=== PATIENT | female | born 1990 | race Caucasian/White ===

== ENCOUNTER → 2018-05-02 | Outpatient (CLI) | payer OTHER ==
[~2018-05-02] MED LIST: ALBU8HFA2 INH; AMOCLA875 PO; AMOX500 PO; BUSP5 PO; CEPH500 PO; CIPR500 PO; CYCL10 PO; DOXY100 PO; HYDACE5 PO; HYDACE5325 PO; IBUP600 PO; IBUP800 PO; MEDR150I; METR500 PO; MULVITMIND PO; MULVITMINE PO; Mirena1 EACH VG; NAPR500 PO; PENVK500 PO; PHENA200 PO; PROM25 PO; Percocet 5-3251 EACH PO; RXCEPH500 PO; RXCYCL10 PO; RXHYDACE PO; SERT50; STOMUL PO; VENL25 PO; Vistaril25 MG PO; Zofran4 MG PO
== END ==
LOC: LAB SHORT 15:04 → LAB SRC 15:04 → LAB SHORT 05-03 10:20
DX: Z51.81 Encounter for therapeutic drug level monitoring (principal); F11.20 Opioid dependence, uncomplicated; F12.10 Cannabis abuse, uncomplicated; Z79.899 Other long term (current) drug therapy
CPT/HCPCS: G0480

== ENCOUNTER → 2018-07-23 | Outpatient (CLI) | payer OTHER | END | disposition home or self-care (01) | LOC: LAB SHORT 12:45 → LAB SRC 12:45 | DX: Z51.81 Encounter for therapeutic drug level monitoring (principal); Z79.899 Other long term (current) drug therapy | CPT/HCPCS: G0480 ==

== ENCOUNTER → 2019-01-14 | Outpatient (CLI) | payer OTHER ==
[2019-01-14 20:23] LABS: Candida species (DNA Probe) Negative (NEGATIVE); G. vaginalis (DNA Probe) Positive (NEGATIVE); T. vaginalis (DNA Probe) Negative (NEGATIVE)
[2019-01-17 02:06] LABS: CHLAMYDIA TRACHOMATIS, NAA Negative (Negative); NEISSERIA GONORRHOEAE, NAA Negative (Negative)
== END | disposition home or self-care (01) ==
LOC: LAB 12:34 → LAB SHORT 12:34
PROVIDERS: Obstetrics & Gynecology
DX: Z01.411 Encounter for gynecological examination (general) (routine) with abnormal findings (principal); Z11.3 Encounter for screening for infections with a predominantly sexual mode of transmission; N76.0 Acute vaginitis
CPT/HCPCS: 87480; 87491; 87510; 87591; 87660; G0123

== ENCOUNTER → 2019-02-18 | Outpatient (CLI) | payer OTHER | END | disposition home or self-care (01) | LOC: LAB SRC 08:30 → LAB SHORT 08:30 | DX: N39.0 Urinary tract infection, site not specified (principal) | CPT/HCPCS: 87077; 87086; 87186 ==

== ENCOUNTER → 2019-11-14 | Outpatient (CLI) | payer OTHER | LOC: LAB SHORT 18:16 → LAB EV 18:16 | DX: N39.0 Urinary tract infection, site not specified (principal) | CPT/HCPCS: 87077; 87086; 87186 ==

== ENCOUNTER → 2020-02-04 | Outpatient (CLI) | payer OTHER ==
[2020-02-05 16:11] LABS: HPV 16 Negative (Negative); HPV 18 Negative (Negative); HPV OTHER HR TYPES Positive (Negative)
== END ==
LOC: LAB SHORT 14:10 → LAB 14:10
PROVIDERS: Obstetrics & Gynecology
DX: Z01.419 Encounter for gynecological examination (general) (routine) without abnormal findings (principal)
CPT/HCPCS: 87624; 87625; G0123

== ENCOUNTER → 2020-03-09 | Outpatient (CLI) | payer OTHER ==
[2020-03-10 16:07] LABS: ADENOVIRUS F 40/41 Not Detected (Not Detected); ASTROVIRUS Not Detected (Not Detected); C DIFFICILE TOXIN A/B Not Detected (Not Detected); CAMPYLOBACTER Not Detected (Not Detected); CRYPTOSPORIDIUM Not Detected (Not Detected); CYCLOSPORA CAYETANENSIS Not Detected (Not Detected); ENTAMOEBA HISTOLYTICA Not Detected (Not Detected); ENTEROAGGREGATIVE E COLI Not Detected (Not Detected); ENTEROPATHOGENIC E COLI Not Detected (Not Detected); ENTEROTOXIGENIC E COLI Not Detected (Not Detected); GIARDIA LAMBLIA Not Detected (Not Detected); NOROVIRUS GI/GII Not Detected (Not Detected); PLESIOMONAS SHIGELLOIDES Not Detected (Not Detected); ROTAVIRUS A Not Detected (Not Detected); SALMONELLA Not Detected (Not Detected); SAPOVIRUS Not Detected (Not Detected); SHIGA-TOXIN-PRODUCING E COLI Not Detected (Not Detected); SHIGELLA/ENTEROINVASIVE E COLI Not Detected (Not Detected); VIBRIO Not Detected (Not Detected); VIBRIO CHOLERAE Not Detected (Not Detected); YERSINIA ENTEROCOLITICA Not Detected (Not Detected)
== END | disposition home or self-care (01) ==
LOC: LAB SHORT 08:30 → LAB 08:30
PROVIDERS: Nurse Practitioner Family
DX: R10.9 Unspecified abdominal pain (principal); R19.7 Diarrhea, unspecified; R19.5 Other fecal abnormalities
CPT/HCPCS: 0097U

== ENCOUNTER 2020-06-14 09:43 | Day surgery (SDC) | payer OTHER ==
[~2020-06-14] VITALS: Ht 162.6 cm; Wt 77.3 kg
[~2020-06-14 09:43] MED LIST changes: +APTENSIO PO; +ARIP20 PO
[2020-06-14] MEDS ORDERED: METHYLPHENIDATE20 M5 (10:20)
--- NOTE | 2020-06-14 10:21 | NUR ---
06/14/20 1021 NOAH EPPS ONE ATTEMPT IN RH BY ELMA VALVE ONE SUCCESSFUL BY ELMA IN RW PT TOW
== END 2020-06-14 11:37 | disposition home or self-care (01) ==
LOC: ORSCSDS 09:43
PROVIDERS: Internal Medicine Gastroenterology
PROC: 0DBN8ZX Excision of Sigmoid Colon, Via Natural or Artificial Opening Endoscopic, Diagnostic (ICD-10-PCS; principal; 2020-06-14 11:00)
PROC: 0DBL8ZX Excision of Transverse Colon, Via Natural or Artificial Opening Endoscopic, Diagnostic (ICD-10-PCS; principal; 2020-06-14 11:00)
PROC: 0DB98ZX Excision of Duodenum, Via Natural or Artificial Opening Endoscopic, Diagnostic (ICD-10-PCS; principal; 2020-06-14 11:00)
PROC: 0DBE8ZX Excision of Large Intestine, Via Natural or Artificial Opening Endoscopic, Diagnostic (ICD-10-PCS; principal; 2020-06-14 11:00)
PROC: 0DB78ZX Excision of Stomach, Pylorus, Via Natural or Artificial Opening Endoscopic, Diagnostic (ICD-10-PCS; principal; 2020-06-14 11:00)
DX: R19.4 Change in bowel habit (principal); R19.8 Other specified symptoms and signs involving the digestive system and abdomen; R10.9 Unspecified abdominal pain; R11.2 Nausea with vomiting, unspecified; D12.3 Benign neoplasm of transverse colon; D12.4 Benign neoplasm of descending colon; K63.5 Polyp of colon; F17.210 Nicotine dependence, cigarettes, uncomplicated; F31.9 Bipolar disorder, unspecified; Z79.899 Other long term (current) drug therapy
CPT/HCPCS: 88305; 88342; J2250; J2704; J7120

== ENCOUNTER → 2021-06-03 | Outpatient (CLI) | payer OTHER ==
[~2021-06-03] MED LIST changes: +METHYLPHENIDATE20 M5
[2021-06-03 10:03] LABS: BASOPHILS ABSOLUTE AUTO 0.02 K/mm3 (0.00-0.23); BASOPHILS PERCENT AUTO 0 % (0-2); EOSINOPHILS ABSOLUTE AUTO 0.03 K/mm3 (0.00-0.68); EOSINOPHILS PERCENT AUTO 0 % (0-6); IMMATURE GRAN ABSOLUTE AUTO 0.03 K/mm3 (0.00-0.10); IMMATURE GRAN PERCENT AUTO 0 % (0-1); LYMPHOCYTES ABSOLUTE AUTO 1.12 K/mm3 (0.84-5.20); LYMPHOCYTES PERCENT AUTO 16 % (21-46); MONOCYTES ABSOLUTE AUTO 0.62 K/mm3 (0.16-1.47); MONOCYTES PERCENT AUTO 9 % (4-13); Mean Corpuscular HGB 32.8 pg (26.0-34.0); Mean Corpuscular HGB Conc 34.3 g/dL (31.5-36.5); Mean Corpuscular Volume 96 fL (80-100); Mean Platelet Volume 9.3 fL (9.1-12.4); NEUTROPHILS ABSOLUTE AUTO 4.99 K/mm3 (1.96-9.15); NEUTROPHILS PERCENT AUTO 73 % (41-73); Platelet Count 216 K/mm3 (150-400); RDW Coefficient Variation 12.1 % (11.7-14.2); RDW Standard Deviation 42.5 fL (35.1-46.3); Red Blood Cell Count 3.66 M/mm3 (3.80-5.20); White Blood Cell Count 6.81 K/mm3 (4.00-11.30)
[2021-06-03 10:13] LABS: Alanine Aminotransfer (ALT/SGP 66 U/L (12-78); Albumin, Blood 3.5 g/dL (3.4-5.0); Albumin/Globulin Ratio 1.2 (0.8-1.8); Alk Phos 76 U/L (40-126); Anion Gap 10 mmol/L (6-16); Aspartate Aminotrans (AST/SGOT 40 U/L (12-37); Bilirubin, Total 0.2 mg/dL (0.1-1.0); Blood Urea Nitrogen 6 mg/dL (8-24); Bun/Creatinine Ratio 10.3 (12.0-20.0); CO2, Blood 23 mmol/L (21-32); Calcium, Blood 8.8 mg/dL (8.5-10.1); Chloride, Blood 107 mmol/L (98-108); Creatinine, Blood 0.58 mg/dL (0.40-1.00); Globulin, Blood 2.9 g/dL (2.2-4.0); Glomerular Filtration Rate >60 (60-); Glucose, Blood 81 mg/dL (70-99); Potassium, Blood 3.8 mmol/L (3.5-5.5); Sodium, Blood 140 mmol/L (136-145); Total Protein, Blood 6.4 g/dL (6.4-8.2)
== END | disposition home or self-care (01) ==
LOC: LAB SHORT 09:57
PROVIDERS: Physician Assistant
DX: R55 Syncope and collapse (principal)
CPT/HCPCS: 80053; 85025

== ENCOUNTER 2021-11-07 06:08 | Inpatient (IN) | payer OTHER ==
[~2021-11-07] VITALS: Ht 162.6 cm; Wt 100.0 kg
[2021-11-07 06:55] LABS: BASOPHILS ABSOLUTE AUTO 0.03 K/mm3 (0.00-0.23); BASOPHILS PERCENT AUTO 0 % (0-2); EOSINOPHILS PERCENT AUTO 2 % (0-6); Hematocrit 32.5 % (33.0-51.0); IMMATURE GRAN PERCENT AUTO 1 % (0-1); LYMPHOCYTES ABSOLUTE AUTO 3.28 K/mm3 (0.84-5.20); LYMPHOCYTES PERCENT AUTO 24 % (21-46); MONOCYTES ABSOLUTE AUTO 0.78 K/mm3 (0.16-1.47); MONOCYTES PERCENT AUTO 6 % (4-13); Mean Corpuscular HGB 30.7 pg (26.0-34.0); Mean Corpuscular HGB Conc 33.8 g/dL (31.5-36.5); Mean Corpuscular Volume 91 fL (80-100); Mean Platelet Volume 9.8 fL (9.1-12.4); NEUTROPHILS PERCENT AUTO 68 % (41-73); Platelet Count 399 K/mm3 (150-400); RDW Coefficient Variation 14.6 % (11.7-14.2); RDW Standard Deviation 48.4 fL (35.1-46.3); Red Blood Cell Count 3.58 M/mm3 (3.80-5.20); White Blood Cell Count 13.79 K/mm3 (4.00-11.30)
[2021-11-07] MEDS ORDERED: ACYC400 PO (08:03)
[2021-11-07] MEDS ORDERED: ABILIFY MYCITE15 M2 PO (08:04)
[2021-11-09 06:16] LABS: Hemoglobin 9.8 g/dL (11.5-16.0); Mean Corpuscular HGB 30.1 pg (26.0-34.0); Mean Corpuscular HGB Conc 32.7 g/dL (31.5-36.5); Mean Corpuscular Volume 92 fL (80-100); Mean Platelet Volume 9.6 fL (9.1-12.4); Platelet Count 341 K/mm3 (150-400); RDW Standard Deviation 50.1 fL (35.1-46.3); Red Blood Cell Count 3.26 M/mm3 (3.80-5.20); White Blood Cell Count 12.71 K/mm3 (4.00-11.30)
--- NOTE | 2021-11-09 08:43 | NUR ---
CLYDE WADDELL NOTIFIED ON PT DEPRESSION SCALE ALGORITHM SCORE OF 10. PT WILL BE SEEN IN OFFICE WITHIN 2 WEEKS.
[2021-11-09] MEDS ORDERED: IBUP800 PO (09:59)
--- NOTE | 2021-11-09 10:17 | NUR ---
DISCHARGE INSTRUCTIONS SIGNED. BANDS MATCHED. PT TO BE DISCHARGED HOME WITH .
== END 2021-11-09 10:30 | disposition home or self-care (01) | DRG 807 ==
LOC: OBS 06:08 → BC 06:11 → OBS 06:17 → BC 06:19
PROVIDERS: Advanced Practice Midwife; ADMIT Nurse Practitioner Obstetrics & Gynecology
PROC: 10E0XZZ Delivery of Products of Conception, External Approach (ICD-10-PCS; principal; 2021-11-08)
PROC: 3E033VJ Introduction of Other Hormone into Peripheral Vein, Percutaneous Approach (ICD-10-PCS; 2021-11-08)
PROC: 10907ZC Drainage of Amniotic Fluid, Therapeutic from Products of Conception, Via Natural or Artificial Opening (ICD-10-PCS; 2021-11-08)
PROC: 10H07YZ Insertion of Other Device into Products of Conception, Via Natural or Artificial Opening (ICD-10-PCS; 2021-11-08)
PROC: 00HU33Z Insertion of Infusion Device into Spinal Canal, Percutaneous Approach (ICD-10-PCS; 2021-11-08)
PROC: 3E0R3NZ Introduction of Analgesics, Hypnotics, Sedatives into Spinal Canal, Percutaneous Approach (ICD-10-PCS; 2021-11-08)
DX: O13.4 Gestational [pregnancy-induced] hypertension without significant proteinuria, complicating childbirth (principal); Z37.0 Single live birth; Z3A.38 38 weeks gestation of pregnancy; Z67.10 Type A blood, Rh positive; Z98.891 History of uterine scar from previous surgery; O99.334 Smoking (tobacco) complicating childbirth; F17.210 Nicotine dependence, cigarettes, uncomplicated; Z71.6 Tobacco abuse counseling; O76 Abnormality in fetal heart rate and rhythm complicating labor and delivery
CPT/HCPCS: 36415; 51702; 85025; 85027; 86850; 86900; 86901; A9270; J1885; J2001; J2210; J2590; J3010; J7120

== ENCOUNTER 2022-06-08 06:06 | Day surgery (SDC) | payer OTHER ==
[~2022-06-08] VITALS: Ht 165.1 cm; Wt 86.7 kg
[~2022-06-08 06:06] MED LIST changes: +ABILIFY MYCITE15 M2 PO; +ACYC400 PO
[2022-06-08] MEDS ORDERED: METPHE20 PO (06:52)
[2022-06-08] MEDS ORDERED: QUET25 PO (06:53)
--- NOTE | 2022-06-08 07:56 | NUR ---
06/08/22 0756 NATHAN OSBORNE 0.15MG OF EPI ADDED TO 30MLS OF ROPIVACAINE 0.5% TO CREATE A LOCAL SOLUTION OF ROPIVACAINE 0.5% WITH EPI 1:200,000. 10MLS OF LOCAL POURED ONTO STERILE FIELD FOR USE DURING CASE.
--- NOTE | 2022-06-08 09:46 | NUR ---
06/08/22 0946 Emma Peterson PATIENT SITTING UP IN RECLINER. C/O 6/10 PAIN IN ABDOMEN. 25MCG FENTANYL IV ADMINISTERED PER DR ORDERS FOR A TOTAL OF 50MCG. SEE VSS FOR FURTHER DETAILS.
== END 2022-06-08 10:25 | disposition home or self-care (01) ==
LOC: ORSCSDS 06:06
PROVIDERS: Obstetrics & Gynecology
PROC: 0UT74ZZ Resection of Bilateral Fallopian Tubes, Percutaneous Endoscopic Approach (ICD-10-PCS; principal; 2022-06-08 07:30)
DX: Z30.2 Encounter for sterilization (principal); N80.329 Endometriosis of the posterior cul-de-sac, unspecified depth; F17.210 Nicotine dependence, cigarettes, uncomplicated; Z79.899 Other long term (current) drug therapy
CPT/HCPCS: 88302; A9270; J0171; J0690; J1100; J2250; J2370; J2405; J2704; J2795; J3010; J7120

== ENCOUNTER → 2023-01-29 | Outpatient (CLI) | payer OTHER ==
[~2023-01-29] MED LIST changes: +METPHE20 PO; +QUET25 PO
== END | disposition home or self-care (01) ==
LOC: LAB 09:46 → LAB SHORT 09:46
DX: N39.0 Urinary tract infection, site not specified (principal)
CPT/HCPCS: 87077; 87086; 87186

== ENCOUNTER → 2024-12-16 | Outpatient (CLI) | payer OTHER | END | disposition home or self-care (01) | LOC: LAB SHORT 16:34 → LAB 16:34 | DX: N30.01 Acute cystitis with hematuria (principal); R39.89 Other symptoms and signs involving the genitourinary system; R82.998 Other abnormal findings in urine | CPT/HCPCS: 87077; 87086; 87186 ==

== ENCOUNTER → 2025-04-13 | Outpatient (CLI) | payer OTHER | END | disposition home or self-care (01) | LOC: LAB 13:00 → LAB SHORT 13:00 | DX: N39.0 Urinary tract infection, site not specified (principal) | CPT/HCPCS: 87077; 87086; 87186 ==